=== PATIENT | male | born 1975 | race African-American/Black ===

== ENCOUNTER 2018-05-27 10:14 | Emergency (ER) | payer MEDICARE, MEDICAID ==
[~2018-05-27] VITALS: Ht 177.8 cm; Wt 102.8 kg
[2018-05-27 10:23] VITALS: BP 130/91
[2018-05-27] MEDS ORDERED: HYDR-3965 PO (11:59)
[2018-05-27] MEDS ORDERED: IBUP-1986 PO (12:33)
== END 2018-05-27 12:46 | disposition left against medical advice (07) ==
LOC: ER 10:17
DX: S92.355A Nondisplaced fracture of fifth metatarsal bone, left foot, initial encounter for closed fracture (principal); Z79.899 Other long term (current) drug therapy; X50.1XXA Overexertion from prolonged static or awkward postures, initial encounter; Y93.89 Activity, other specified; Y92.89 Other specified places as the place of occurrence of the external cause; Y99.8 Other external cause status
CPT/HCPCS: 29515; 73630; 99283

== ENCOUNTER 2018-06-02 15:37 | Outpatient (CLI) | payer MEDICARE ==
[2018-06-02 15:00] VITALS: BP 137/91
[~2018-06-02 15:37] MED LIST: HYDR-3965 PO; IBUP-1986 PO
== END 2018-06-02 15:45 | disposition home or self-care (01) ==
LOC: ORTHO 15:37
PROVIDERS: ATTEND Nurse Practitioner Family
DX: S92.355A Nondisplaced fracture of fifth metatarsal bone, left foot, initial encounter for closed fracture (principal); X58.XXXA Exposure to other specified factors, initial encounter; Y93.89 Activity, other specified; Y92.89 Other specified places as the place of occurrence of the external cause; Y99.8 Other external cause status
CPT/HCPCS: 99213